=== PATIENT | female | born 1975 | race Hispanic/Latino ===

== ENCOUNTER 2018-12-04 01:05 | Emergency (ER) | payer OTHER ==
[2018-12-04 02:18] LABS: Bacteria,Urine 4+ /HPF (Negative); Bilirubin,Urine NEG (Negative); Blood,Urine NEG (Negative); Color,Urine Yellow (Yellow); Mucus,Urine 1+ /HPF; Protein,Urine <15 mg/dL mg/dL (Negative); Urobilinogen,Urine < 2.0 mg/dL (<2.0)
[2018-12-04 02:27] LABS: Basophils # (Auto) 0.1 K/mm3 (0.0-0.1); Basophils % (Auto) 0.6 % (0.0-1.8); Eosinophils # (Auto) 0.2 K/mm3 (0.0-0.4); Eosinophils % (Auto) 1.7 % (0.0-4.3); Hematocrit 38.5 % (30.3-42.9); Hemoglobin 13.2 gm/dl (10.1-14.3); Lymphocytes # (Auto) 2.8 K/mm3 (1.2-5.4); Lymphocytes % (Auto) 25.3 % (13.4-35.0); Mean Corpuscular HGB Conc 34 % (30-34); Mean Corpuscular Volume 86 fl (79-97); Monocytes # (Auto) 0.8 K/mm3 (0.0-0.8); Monocytes % (Auto) 7.3 % (0.0-7.3); Platelet Count 295 K/mm3 (140-440); Red Cell Distribution Width 12.7 % (13.2-15.2)
--- NOTE | 2018-12-04 03:45 | Emergency Department Report ---
<MASOUD VELAZQUEZIsaura - Last Filed: 12/04/18 06:17> ED Abdominal Pain HPI - General Chief Complaint: Abdominal Pain Stated Complaint: PREG/ABD PAIN Time Seen by Provider: 12/04/18 03:40 - Related Data Previous Rx's Medication Instructions Recorded Last Taken Type Amoxicillin [Amoxicillin TAB] 875 mg PO BID 10 Days #20 tablet 12/04/18 Unknown Rx Allergies Allergy/AdvReac Type Severity Reaction Status Date / Time No Known Allergies Allergy Unverified 12/04/18 01:16 ED Past Medical Hx - Medications Home Medications: Home Medications Medication Instructions Recorded Confirmed Last Taken Type Amoxicillin [Amoxicillin TAB] 875 mg PO BID 10 Days #20 tablet 12/04/18 Unknown Rx ED Medical Decision Making - Lab Data Result diagrams: 12/04/18 01:50 - Radiology Data Findings [facility] [address] [place] [address] Ultrasound Report Signed Patient: KRISTIAN ANDRES MR#: [id number] : 1975 Acct:[id number] Age/Sex: 43 / F ADM Date: 12/04/18 Loc: ED Attending Dr: Ordering Physician: STEPHAN SAENZ III, MD Date of Service: 12/04/18 Procedure(s): US OB transvaginal Accession Number(s): [id number] cc: STEPHAN SAENZ III, MD ULTRASOUND OBSTETRIC INDICATION / CLINICAL INFORMATION: abdominal pain. Clinical Gestational Age (GA): Unknown LMP TECHNIQUE: Transabdominal and Transvaginal. COMPARISON: None available. FINDINGS: GESTATIONAL SAC: Well-defined oval shape and intrauterine in location. YOLK SAC: No significant abnormality. EMBRYO/FETUS: No significant abnormality. - [place]-Rump Length = 12.4 cm = 7 weeks, 3 day(s). - Heart Rate, beats per minute (if present) = 144 ADNEXA: No significant abnormality. FREE FLUID: None. ADDITIONAL FINDINGS: None. IMPRESSION: 1. Single, living intrauterine with estimated sonographic age of 7 weeks, 3 day(s). Signer Name: Kasandra Saunders MD Signed: 12/04/2018 5:44 AM Workstation Name: [id number] Transcribed By: C Dictated By: Kasandra Saunders MD Electronically Authenticated By: Kasandra Saunders MD Signed Date/Time: 12/04/18543 DD/ 0 TD/TT: ED Disposition Clinical Impression: Abdominal cramps, Threatened miscarriage, Abdominal pain during intrauterine Qualifiers: Weeks of gestation: less than 8 weeks Qualified Code(s): Z3A.01 - Less than 8 weeks gestation of UTI (urinary tract infection) Qualifiers: Urinary tract infection type: acute cystitis Hematuria presence: with hematuria Qualified Code(s): N30.01 - Acute cystitis with hematuria Disposition: TO HOME OR SELFCARE Condition: Stable Instructions: Spontaneous Miscarriage (ED), Threatened Miscarriage (ED), (ED), Abdominal Pain (ED) Additional Instructions: Patient to follow-up with primary care in 2-3 days. Patient to follow-up with [facility] in 2-3 days. Patient to return to ER if condition worsens. Patient to rest. Patient to increase water. Patient to take meds as directed. Patient's take Tylenol when necessary for pain. Patient to start vitamin. Prescriptions: Amoxicillin [Amoxicillin TAB] 875 mg PO BID 10 Days #20 tablet Referrals: PRIMARY CAREMD [Primary Care Provider] - 2-3 Days GISELA OWENS MD [Staff Physician] - 2-3 Days <STEPHAN SAENZ III - Last Filed: 12/08/18 20:21> ED Abdominal Pain HPI - General Source: patient Mode of arrival: Ambulatory Limitations: No Limitations - History of Present Illness Initial Comments: She is a 43-year-old female that presents emergency room with complaints of abdominal pain. Patient states she is but does not know how far along. Patient states that she doesn't know when her last menstrual period was patient states she seen [facility] for 3 visits in no way can tell her how far along she is. Patient denies vaginal bleeding. Patient denies loss of fluid per vagina. Patient denies vaginal discharge. Patient denies dysuria. Patient denies fever and chills. Patient denies chest pain shortness of breath. Patient states her abdominal pain is a cramping at a 6 out of 10. Patient states her abdominal pain is intermittent. Patient states her abdominal pain is better with rest and worse with movement and exertion. MD Complaint: abdominal pain -: Sudden Location: diffuse Radiation: none Severity: moderate Severity scale (0 -10): 6 Quality: cramping Consistency: intermittent Associated Symptoms: denies: nausea, vomiting, diarrhea, fever, chills, constipation, dysuria ED Review of Systems ROS: Stated complaint: PREG/ABD PAIN Other details as noted in HPI Constitutional: denies: chills, fever Eyes: denies: eye pain, eye discharge, vision change ENT: denies: ear pain, throat pain Respiratory: denies: cough, shortness of breath, wheezing Cardiovascular: denies: chest pain, palpitations Endocrine: no symptoms reported Gastrointestinal: abdominal pain. denies: nausea, diarrhea Genitourinary: denies: urgency, dysuria, discharge Musculoskeletal: denies: back pain, joint swelling, arthralgia Skin: denies: rash, lesions Neurological: denies: headache, weakness, paresthesias Psychiatric: denies: anxiety, depression Hematological/Lymphatic: denies: easy bleeding, easy bruising ED Past Medical Hx - Past Medical History Previous Medical History?: No - Surgical History Past Surgical History?: Yes Hx Cholecystectomy: Yes - Family History Family history: no significant - Social History Smoking Status: Never Smoker Substance Use Type: None ED Physical Exam - General Limitations: No Limitations General appearance: alert, in no apparent distress - Head Head exam: Present: atraumatic, normocephalic - Eye Eye exam: Present: normal appearance - ENT ENT exam: Present: mucous membranes moist - Neck Neck exam: Present: normal inspection - Respiratory Respiratory exam: Present: normal lung sounds bilaterally. Absent: respiratory distress - Cardiovascular Cardiovascular Exam: Present: regular rate, normal rhythm. Absent: systolic murmur, diastolic murmur, rubs, gallop - GI/Abdominal GI/Abdominal exam: Present: soft, distended, normal bowel sounds. Absent: tenderness, guarding - Extremities Exam Extremities exam: Present: normal inspection - Back Exam Back exam: Present: normal inspection - Neurological Exam Neurological exam: Present: alert, oriented X3 - Psychiatric Psychiatric exam: Present: normal affect, normal mood - Skin Skin exam: Present: warm, dry, intact, normal color. Absent: rash ED Course Vital Signs 12/04/18 12/04/18 01:13 06:29 Temperature 98.5 F Pulse Rate 105 H 84 Respiratory 18 16 Rate Blood Pressure 137/89 Blood Pressure 114/81 [Left] O2 Sat by Pulse 100 100 Oximetry - Reevaluation(s) Reevaluation #1: I discussed all results with patient. I discussed plan of care with patient. Patient agrees with plan of care. Patient is stable for discharge. Patient will be discharged home. Patient given discharge instructions. Patient voiced understanding of discharge instructions. 12/04/18 05:11 ED Medical Decision Making - Lab Data Result diagrams: 12/04/18 01:50 - Radiology Data Radiology results: report reviewed - Medical Decision Making She is a 43-year-old female that presents emergency room for abdominal cramping. Patient had an ultrasound done and shows a 7 week IUP. Labs unremarkable except for UTI.. Patient stable for discharge. Patient discharged home. - Differential Diagnosis . Abdominal cramping. threatened miscarriage Critical care attestation.: If time is entered above; I have spent that time in minutes in the direct care of this critically ill patient, excluding procedure time. ED Disposition Is pt being admited?: No Does the pt Need Aspirin: No Time of Disposition: 05:12
--- NOTE | 2018-12-04 05:48 | Ultrasound Report ---
ULTRASOUND OBSTETRIC INDICATION / CLINICAL INFORMATION: abdominal pain. Clinical Gestational Age (GA): Unknown LMP TECHNIQUE: Transabdominal and Transvaginal. COMPARISON: None available. FINDINGS: GESTATIONAL SAC: Well-defined oval shape and intrauterine in location. YOLK SAC: No significant abnormality. EMBRYO/FETUS: No significant abnormality. - [place]-Rump Length = 12.4 cm = 7 weeks, 3 day(s). - Heart Rate, beats per minute (if present) = 144 ADNEXA: No significant abnormality. FREE FLUID: None. ADDITIONAL FINDINGS: None. IMPRESSION: 1. Single, living intrauterine with estimated sonographic age of 7 weeks, 3 day(s). Signer Name: Kasandra Saunders MD Signed: 12/04/2018 5:44 AM Workstation Name: [id number]
--- NOTE | 2018-12-04 05:48 | Ultrasound Report ---
ULTRASOUND OBSTETRIC INDICATION / CLINICAL INFORMATION: abdominal pain. Clinical Gestational Age (GA): Unknown LMP TECHNIQUE: Transabdominal and Transvaginal. COMPARISON: None available. FINDINGS: GESTATIONAL SAC: Well-defined oval shape and intrauterine in location. YOLK SAC: No significant abnormality. EMBRYO/FETUS: No significant abnormality. - [place]-Rump Length = 12.4 cm = 7 weeks, 3 day(s). - Heart Rate, beats per minute (if present) = 144 ADNEXA: No significant abnormality. FREE FLUID: None. ADDITIONAL FINDINGS: None. IMPRESSION: 1. Single, living intrauterine with estimated sonographic age of 7 weeks, 3 day(s). Signer Name: Kasandra Saunders MD Signed: 12/04/2018 5:44 AM Workstation Name: [email or web address]
[2018-12-04 06:30] VITALS: BP 114/81
== END 2018-12-04 06:29 | disposition home or self-care (01) ==
LOC: ED 01:05
DX: O20.0 Threatened abortion (principal); Z90.49 Acquired absence of other specified parts of digestive tract
CPT/HCPCS: 36415; 76801; 76817; 81001; 84702; 85025; 87076; 87086; 87186

== ENCOUNTER 2020-02-16 19:33 | Emergency (ER) | payer SELFPAY ==
--- NOTE | 2020-02-16 20:25 | Emergency Department Report ---
Blank Doc - Documentation Documentation: 44-year-old female that presents with URI symptoms. This initial assessment/diagnostic orders/clinical plan/treatment(s) is/are subject to change based on patient's health status, clinical progression and re- assessment by fellow clinical providers in the ED. Further treatment and workup at subsequent clinical providers discretion. Patient/guardians urged not to elope from the ED as their condition may be serious if not clinically assessed and managed. Initial orders include: 1- Patient sent to [facility] for further evaluation and treatment 2- CXR
[2020-02-16 20:31] VITALS: BP 117/78
[2020-02-16 21:17] LABS: Bacteria,Urine 2+ /HPF (Negative); Bilirubin,Urine NEG (Negative); Blood,Urine NEG (Negative); Color,Urine Yellow (Yellow); Mucus,Urine 3+ /HPF
[2020-02-16 21:18] LABS: HCG Qualitative,Urine Negative (Negative)
--- NOTE | 2020-02-16 22:31 | XRay Report ---
CHEST 2 VIEWS INDICATION / CLINICAL INFORMATION: cough. COMPARISON: None available. FINDINGS: SUPPORT DEVICES: None. HEART / MEDIASTINUM: No significant abnormality. LUNGS / PLEURA: No significant pulmonary or pleural abnormality. No pneumothorax. ADDITIONAL FINDINGS: Cholecystectomy clips. IMPRESSION: 1. No acute findings. Signer Name: Omid Rai MD Signed: 02/16/2020 10:27 PM Workstation Name: [id number]
--- NOTE | 2020-02-17 00:31 | Emergency Department Report ---
ED General Adult HPI - General Chief complaint: Upper Respiratory Infection Stated complaint: COLD SX Time Seen by Provider: 02/16/20 20:24 Source: patient Mode of arrival: Ambulatory Limitations: No Limitations - History of Present Illness Initial comments: 44-year-old female patient presents with complaints of cough and congestion x1 week. She states that her boyfriend was recently diagnosed with an upper respiratory infection that cleared with a Z-Cathy and that his symptoms were similar. She denies any chest pain, shortness of breath, leg pain/swelling, hemoptysis, fever/chills/sweats, abdominal pain, nausea/vomiting/diarrhea, loss of taste/smell, use of hormones, or history of PE/DVT. No history of smoking or other medical diseases per patient - Related Data Previous Rx's Medication Instructions Recorded Last Taken Type Amoxicillin [Amoxicillin TAB] 875 mg PO BID 10 Days #20 tablet 12/04/18 Unknown Rx Azithromycin [Zithromax Z-CATHY] 0 mg PO DAILY #6 tab 02/17/20 Unknown Rx Benzonatate 200 mg PO TID PRN #30 capsule 02/17/20 Unknown Rx Prednisone [predniSONE 10 mg 10 mg PO .TAPER #1 tab.ds.pk 02/17/20 Unknown Rx (6-Day Pack, 21 Tabs)] Allergies Allergy/AdvReac Type Severity Reaction Status Date / Time No Known Allergies Allergy Unverified 12/04/18 01:16 ED Review of Systems ROS: Stated complaint: COLD SX Other details as noted in HPI Constitutional: denies: chills, diaphoresis, fever, malaise, weakness ENT: denies: throat pain Respiratory: cough. denies: shortness of breath Cardiovascular: denies: chest pain Gastrointestinal: denies: abdominal pain, nausea, vomiting, diarrhea Musculoskeletal: denies: back pain Skin: denies: rash, change in color ED Past Medical Hx - Past Medical History Previous Medical History?: No - Surgical History Past Surgical History?: Yes Hx Cholecystectomy: Yes - Social History Smoking Status: Never Smoker Substance Use Type: None - Medications Home Medications: Home Medications Medication Instructions Recorded Confirmed Last Taken Type Amoxicillin [Amoxicillin TAB] 875 mg PO BID 10 Days #20 tablet 12/04/18 Unknown Rx Azithromycin [Zithromax Z-CATHY] 0 mg PO DAILY #6 tab 02/17/20 Unknown Rx Benzonatate 200 mg PO TID PRN #30 capsule 02/17/20 Unknown Rx Prednisone [predniSONE 10 mg 10 mg PO .TAPER #1 tab.ds.pk 02/17/20 Unknown Rx (6-Day Pack, 21 Tabs)] ED Physical Exam - General Limitations: No Limitations General appearance: alert, in no apparent distress - Head Head exam: Present: atraumatic, normocephalic - Eye Eye exam: Present: normal appearance - ENT ENT exam: Present: mucous membranes moist - Neck Neck exam: Present: normal inspection - Respiratory Respiratory exam: Present: normal lung sounds bilaterally. Absent: respiratory distress - Cardiovascular Cardiovascular Exam: Present: regular rate, normal rhythm. Absent: systolic murmur, diastolic murmur, rubs, gallop - Extremities Exam Extremities exam: Absent: calf tenderness (No swelling noted) - Back Exam Back exam: Present: normal inspection - Neurological Exam Neurological exam: Present: alert, oriented X3, normal gait - Psychiatric Psychiatric exam: Present: normal affect, normal mood - Skin Skin exam: Present: warm, dry, intact, normal color. Absent: rash ED Course Vital Signs 02/16/20 20:26 Temperature 97.9 F Pulse Rate 102 H Respiratory 18 Rate Blood Pressure 117/78 O2 Sat by Pulse 100 Oximetry ED Medical Decision Making - Radiology Data Radiology results: report reviewed - Medical Decision Making 44-year-old female patient presents with complaints of cough and congestion x1 week. She states that her boyfriend was recently diagnosed with an upper respiratory infection that cleared with a Z-Cathy and that his symptoms were similar. She denies any chest pain, shortness of breath, leg pain/swelling, hemoptysis, fever/chills/sweats, abdominal pain, nausea/vomiting/diarrhea, loss of taste/smell, use of hormones, or history of PE/DVT. No history of smoking or other medical diseases per patient Lungs are clear on exam. X-rays negative for any acute abnormalities. Will treat for lower respiratory tract infection with Z-Cathy and prednisone. Recommend follow-up primary care in 3 to 5 days. Strict return precautions were discussed in great detail with patient who states understanding. Critical care attestation.: If time is entered above; I have spent that time in minutes in the direct care of this critically ill patient, excluding procedure time. ED Disposition Clinical Impression: Lower respiratory infection Disposition: DC- TO HOME OR SELFCARE Is pt being admited?: No Condition: Stable Instructions: Acute Bronchitis, Adult Prescriptions: Benzonatate 200 mg PO TID PRN #30 capsule PRN Reason: Cough Prednisone [predniSONE 10 mg (6-Day Pack, 21 Tabs)] 10 mg PO .TAPER #1 tab.ds.pk Azithromycin [Zithromax Z-CATHY] 0 mg PO DAILY #6 tab Referrals: [facility] [Provider Group] - 3-5 Days
== END 2020-02-17 00:40 | disposition home or self-care (01) ==
LOC: ED 19:33
DX: J22 Unspecified acute lower respiratory infection (principal); Z90.49 Acquired absence of other specified parts of digestive tract; Z79.899 Other long term (current) drug therapy
CPT/HCPCS: 71046; 81001; 81025; 87076; 87086; 87186; 99283